=== PATIENT | male | born 1980 ===

== ENCOUNTER 2021-07-20 18:30 | Emergency (ER) | payer SELFPAY ==
[2021-07-20] MEDS ORDERED: ONDANSETRON 4 MG ODT TAB PO ONE (19:59)
[2021-07-20 20:59] LABS: Basophils % (Auto) 0.3 % (0.0-1.8); Hematocrit 44.7 % (35.5-45.6); Hemoglobin 15.1 gm/dl (11.8-15.2); Lymphocytes # (Auto) 1.1 K/mm3 (1.2-5.4); Lymphocytes % (Auto) 22.6 % (13.4-35.0); Mean Corpuscular HGB Conc 34 % (32-34); Mean Corpuscular Volume 85 fl (84-94); Monocytes # (Auto) 0.1 K/mm3 (0.0-0.8); Monocytes % (Auto) 2.8 % (0.0-7.3); Platelet Count 147 K/mm3 (140-440); Red Blood Count 5.23 M/mm3 (3.65-5.03); Red Cell Distribution Width 13.8 % (13.2-15.2)
--- NOTE | 2021-07-20 21:16 | Emergency Department Report ---
ED N/V/D HPI - General Chief complaint: Nausea/Vomiting/Diarrhea Stated complaint: DIARIEAA, HEADACHE,FEVER AND COUHING Source: patient Mode of arrival: Ambulatory Limitations: No Limitations - History of Present Illness Initial comments: Patient is a 41-year-old male with no past medical history who presents to the ED with complaint of acute onset persistent nausea and vomiting and diarrhea, diffuse body aches and pains, dry cough, lack of appetite, loss of sense of taste and smell, headache and subjective fever and chills for the last 5 days. Patient states that he has not eaten anything the last 5 days and now feels generally weak and fatigued. Patient states that he has not been tested for COVID-19 viral infection and that no one else that he knows tested positive for COVID-19 viral infection. Patient denies dizziness, syncope, abdominal pain, dysuria, urinary frequency and urgency, hematuria, testicular pain, sore throat or nasal and sinus congestion. MD complaint: nausea, vomiting, diarrhea -: Sudden, days(s) (5) Description of Vomiting: food contents, watery, bilious Description of Diarrhea: water Associated Abdominal Pain: No Location: diffuse Radiation: none Severity: moderate Pain Scale: 6 Quality: dull Consistency: intermittent Improves with: none Worsens with: none Context: possible food poisoning Associated Symptoms: denies other symptoms, myalgias, cough, fever/chills, headaches, loss of appetite, malaise, nausea/vomiting. denies: chest pain, diaphoresis, rash, dysuria, shortness of breath, syncope, weakness - Related Data Previous Rx's Medication Instructions Recorded Last Taken Type Acetaminophen [Tylenol] 500 mg PO Q6HR PRN #30 tablet 07/21/21 Unknown Rx Ascorbic Acid [Vitamin C] 1,000 mg PO Q12H #30 tablet 07/21/21 Unknown Rx Benzonatate [Tessalon Perles] 100 mg PO Q8HR #30 capsule 07/21/21 Unknown Rx Doxycycline Hyclate 100 mg PO Q12H #20 capsule 07/21/21 Unknown Rx Ondansetron [Zofran Odt] 4 mg PO Q6HR PRN #20 tab.rapdis 07/21/21 Unknown Rx Zinc Acetate [Galzin 50mg CAP] 50 mg PO DAILY #30 capsule 07/21/21 Unknown Rx Allergies Allergy/AdvReac Type Severity Reaction Status Date / Time No Known Allergies Allergy Verified 07/20/21 18:41 ED Review of Systems ROS: Stated complaint: DIARIEAA, HEADACHE,FEVER AND COUHING Other details as noted in HPI Constitutional: chills, fever, malaise, weakness Eyes: denies: eye pain, eye discharge, vision change ENT: denies: ear pain, throat pain, congestion Respiratory: cough. denies: shortness of breath, wheezing Cardiovascular: denies: chest pain, palpitations Endocrine: no symptoms reported Gastrointestinal: nausea, vomiting. denies: abdominal pain, diarrhea Genitourinary: denies: urgency, dysuria Musculoskeletal: arthralgia, myalgia. denies: back pain, joint swelling Skin: denies: rash, lesions Neurological: headache. denies: weakness, paresthesias Psychiatric: denies: anxiety, depression Hematological/Lymphatic: denies: easy bleeding, easy bruising ED Past Medical Hx - Past Medical History Previous Medical History?: No - Surgical History Past Surgical History?: No - Medications Home Medications: Home Medications Medication Instructions Recorded Confirmed Last Taken Type Acetaminophen [Tylenol] 500 mg PO Q6HR PRN #30 tablet 07/21/21 Unknown Rx Ascorbic Acid [Vitamin C] 1,000 mg PO Q12H #30 tablet 07/21/21 Unknown Rx Benzonatate [Tessalon Perles] 100 mg PO Q8HR #30 capsule 07/21/21 Unknown Rx Doxycycline Hyclate 100 mg PO Q12H #20 capsule 07/21/21 Unknown Rx Ondansetron [Zofran Odt] 4 mg PO Q6HR PRN #20 tab.rapdis 07/21/21 Unknown Rx Zinc Acetate [Galzin 50mg CAP] 50 mg PO DAILY #30 capsule 07/21/21 Unknown Rx ED Physical Exam - General Limitations: No Limitations General appearance: alert, in no apparent distress - Head Head exam: Present: atraumatic, normocephalic, normal inspection - Eye Eye exam: Present: normal appearance, PERRL, EOMI Pupils: Present: normal accommodation - ENT ENT exam: Present: normal exam, normal orophraynx, mucous membranes moist, TM's normal bilaterally, normal external ear exam - Neck Neck exam: Present: normal inspection, full ROM - Respiratory Respiratory exam: Present: normal lung sounds bilaterally. Absent: respiratory distress, wheezes, rales, rhonchi, chest wall tenderness, accessory muscle use, decreased breath sounds - Cardiovascular Cardiovascular Exam: Present: normal rhythm, tachycardia, normal heart sounds. Absent: systolic murmur, diastolic murmur, rubs, gallop - GI/Abdominal GI/Abdominal exam: Present: soft, normal bowel sounds. Absent: tenderness, guarding, rebound, hyperactive bowel sounds, hypoactive bowel sounds, organomegaly - Extremities Exam Extremities exam: Present: normal inspection, full ROM, normal capillary refill - Back Exam Back exam: Present: normal inspection, full ROM. Absent: tenderness, CVA tenderness (R), CVA tenderness (L), muscle spasm, paraspinal tenderness, vertebral tenderness - Neurological Exam Neurological exam: Present: alert, oriented X3, CN II-XII intact, normal gait, reflexes normal - Psychiatric Psychiatric exam: Present: normal affect, normal mood - Skin Skin exam: Present: warm, dry, intact, normal color. Absent: rash ED Course Vital Signs 07/20/21 07/20/21 07/20/21 18:42 22:52 22:53 Temperature 99.3 F 98.9 F Pulse Rate 107 H 83 Respiratory 16 14 Rate Blood Pressure 116/79 127/83 [Left] O2 Sat by Pulse 98 97 100 Oximetry ED Medical Decision Making - Lab Data Result diagrams: 07/20/21 20:12 07/20/21 20:12 - Radiology Data Radiology results: report reviewed, image reviewed [facility] [address] [place] [address] XRay Report Signed Patient: MALINI WAITE R#: [id number] : 1980 Acct:[id number] Age/Sex: 41 / M ADM Date: 07/20/21 Loc: ED Attending Dr: Ordering Physician: CECI GARCES Date of Service: 07/20/21 Procedure(s): XR chest routine 2V Accession Number(s): [id number] cc: CECI GARCES Fluoro Time In Minutes: XR chest routine 2V INDICATION / CLINICAL INFORMATION: chest pain. COMPARISON: None available. FINDINGS: SUPPORT DEVICES: None. HEART /PULMONARY VASCULATURE: No significant abnormality. LUNGS / PLEURA: Moderate multifocal pulmonary airspace opacities. No pneumothorax. ADDITIONAL FINDINGS: No significant additional findings. IMPRESSION: 1. Moderate multifocal pulmonary airspace disease, consistent with pneumonia. Signer Name: Dunia Harp MD Signed: 07/20/2021 10:24 PM Workstation Name: [id number] Transcribed By: JOSELUIS Dictated By: DUNIA HARP MD Electronically Authenticated By: DUNIA HRAP MD Signed Date/Time: 07/20/212223 DD/ 22 TD/TT: - Medical Decision Making This is a 41-year-old male with no past medical history who presents to the ED with complaint of acute onset persistent nausea and vomiting and diarrhea, diffuse body aches and pains, dry cough, lack of appetite, loss of sense of taste and smell, headache and subjective fever and chills for the last 5 days. Patient states that he has not eaten anything the last 5 days and now feels generally weak and fatigued. Patient states that he has not been tested for COVID-19 viral infection and that no one else that he knows tested positive for COVID-19 viral infection. In the ED, patient is alert and oriented x3 and is not in distress but tachycardic and afebrile in triage. Lab test results were reviewed and are all nonactionable. Patient was treated for pain, also given antiemetics, antacids, normal saline 1 L IV bolus x1. Chest x-ray showed moderate multifocal pulmonary airspace disease, consistent with pneumonia. Patient was treated in the ED with Rocephin 1 g IV x1 and azithromycin 500 mg p .o. x1 as well as Decadron. On reevaluation, patient felt better, pain is well controlled, tachycardia resolved and patient was discharged home on medications and advised to ensure that he gets tested for COVID-19 viral infection in any of the outpatient facilities. Patient was advised to return to the ED immediately if symptoms get worse. Patient was otherwise advised to self quarantine at [facility] if COVID-19 diagnostic test results are positive. - Differential Diagnosis Pneumonia; bronchitis; COVID-19; URI; sinusitis; dehydration Critical care attestation.: If time is entered above; I have spent that time in minutes in the direct care of this critically ill patient, excluding procedure time. ED Disposition Clinical Impression: Shortness of breath, Suspected 2019 novel coronavirus infection, Nausea, vomiting and diarrhea Community acquired pneumonia Qualifiers: Laterality: unspecified laterality Qualified Code(s): J18.9 - Pneumonia, unspecified organism Disposition: 01 HOME / SELF CARE / HOMELESS Is pt being admited?: No Does the pt Need Aspirin: No Condition: Stable Instructions: Shortness of Breath, Adult, [id number], Nausea and Vomiting, Adult, [id number], Diarrhea, Adult, [id number], Community-Acquired Pneumonia, Adult, [id number], Bacterial Pneumonia (ED) Additional Instructions: Take medication with food, drink plenty of fluids and ensure that you get tested for COVID-19 viral infection in any of the outpatient facilities and if positi ve self quarantine at home for 10 days. Otherwise return to the ED immediately if symptoms get worse. Prescriptions: Acetaminophen [Tylenol] 500 mg PO Q6HR PRN #30 tablet PRN Reason: Pain , Severe (7-10) Doxycycline Hyclate 100 mg PO Q12H #20 capsule Zinc Acetate [Galzin 50mg CAP] 50 mg PO DAILY #30 capsule Benzonatate [Tessalon Perles] 100 mg PO Q8HR #30 capsule Ascorbic Acid [Vitamin C] 1,000 mg PO Q12H #30 tablet Ondansetron [Zofran Odt] 4 mg PO Q6HR PRN #20 tab.rapdis PRN Reason: Nausea Referrals: [facility] [Provider Group] - 7-10 days Forms: Work/School Release Form(ED) Time of Disposition: 00:45 Print Language: ITALIAN
[2021-07-20 21:23] LABS: Alanine Aminotransferase 37 units/L (7-56); BUN/Creatinine Ratio 8; Blood Urea Nitrogen 6 mg/dL (9-20); Hemolysis Index 3
--- NOTE | 2021-07-20 22:28 | XRay Report ---
XR chest routine 2V INDICATION / CLINICAL INFORMATION: chest pain. COMPARISON: None available. FINDINGS: SUPPORT DEVICES: None. HEART /PULMONARY VASCULATURE: No significant abnormality. LUNGS / PLEURA: Moderate multifocal pulmonary airspace opacities. No pneumothorax. ADDITIONAL FINDINGS: No significant additional findings. IMPRESSION: 1. Moderate multifocal pulmonary airspace disease, consistent with pneumonia. Signer Name: Jonathan Harp MD Signed: 07/20/2021 10:24 PM Workstation Name: [id number]
[2021-07-20 22:40] LABS: Bilirubin,Urine NEG (Negative); Blood,Urine NEG (Negative); Color,Urine Yellow (Yellow); Mucus,Urine FEW /HPF; Urobilinogen,Urine < 2.0 mg/dL (<2.0)
[2021-07-20] MEDS ORDERED: AZITHROMYCIN 250 MG TAB PO ONE (22:43)
[2021-07-20] MEDS ORDERED: dexAMETHasone 20 MG/5 ML VIAL IV ONE (22:43)
[2021-07-20] MEDS ORDERED: cefTRIAXone/NS 1 GM/50 ML 1 GM/50 ML BAG IV ONE (22:43)
[2021-07-20] MEDS ORDERED: SODIUM CHLORIDE 0.9% 1000 ML 1,000 ML IV ONE (22:44)
[2021-07-20 22:54] VITALS: BP 127/83
[2021-07-21] MEDS ORDERED: ACETAMINOPHEN 500 MG TAB PO ONE (00:40)
[2021-07-21] MEDS ORDERED: IBUPROFEN 600 MG TAB PO ONE (00:41)
--- NOTE | 2021-07-21 10:36 | Electrocardiograph Report ---
[facility], [place] Test Date: 2021-07-20 Test Time: 22:41:22 Pat Name: MALINI WAITE Department: Room: Gender: M [employer]: : 1980 Requested By: SHAUNNA VALERO Order Number: [id number] Reading MD: Dejan Fontanez Measurements Intervals [place] Rate: 89 P: 36 MT: 125 QRS: 53 QRSD: 73 T: 2 QT: 350 QTc: 427 Interpretive Statements Sinus rhythm No previous ECG available for comparison Electronically Signed On 07-21-2021 10:36:16 EDT by Dejan Fontanez
== END 2021-07-21 01:30 | disposition home or self-care (01) ==
LOC: ED 18:30
DX: J18.9 Pneumonia, unspecified organism (principal); R11.2 Nausea with vomiting, unspecified; R19.7 Diarrhea, unspecified; Z20.822 Contact with and (suspected) exposure to COVID-19
CPT/HCPCS: 36415; 71046; 80053; 81001; 83690; 85025; 93005; 96365; 96375; 99284; J0696; J1100; J7030